=== PATIENT | female | born 1960 | race Caucasian/White ===

== ENCOUNTER 2017-12-16 05:48 | Day surgery (SDC) | payer MEDICAID ==
[2017-12-12 16:52] LABS: BASOPHILS % (AUTO) 0.7 % (0-1); EOSINOPHILS # (AUTO) 0.1 X10'3 (0-0.9); LYMPHOCYTES # (AUTO) 1.8 X10'3 (1.1-4.8); MEAN CORPUSCULAR HGB CONC 33.5 % (33.0-36.5); MEAN CORPUSCULAR VOLUME 95.5 FL (78-98); MEAN PLATELET VOLUME 7.9 FL (7.4-10.4); MONOCYTES # (AUTO) 0.3 X10'3 (0-0.9); MONOCYTES % (AUTO) 5.3 % (2-12); NEUTROPHILS # (AUTO) 4.1 X10'3 (1.8-7.7); PRE OP HEMATOCRIT 40.3 % (35.0-45.0); PRE OP HEMOGLOBIN 13.5 g/dL (12.0-16.0); PRE OP PLATELET COUNT 286 X10'3 (140-440); RED BLOOD COUNT 4.21 X10'6 (4.20-5.60)
[2017-12-12 16:59] LABS: PRE OP INR 1.1 INR; PRE OP PROTIME 11.4 SECONDS (9.0-12.0)
[2017-12-12 17:03] LABS: ALBUMIN 3.8 G/DL (3.4-5.0); ALBUMIN/GLOBULIN RATIO 1.1 (1.1-1.5); ALKALINE PHOSPHATASE 75 IU/L (46-116); BLOOD UREA NITROGEN 10 MG/DL (7-18); BUN/CREATININE RATIO 13.3 (6.6-38.0); CALCIUM 9.3 MG/DL (8.5-10.1); CHLORIDE 104 MMOL/L (99-107); CREATININE 0.75 MG/DL (0.40-0.90); PRE OP ALT 32 U/L (30-65); PRE OP ANION GAP 4 (8-16); PRE OP AST 23 U/L (10-37); PRE OP BILIRUB, TOTAL 0.4 MG/DL (0.0-1.0); PRE OP GLUCOSE 92 MG/DL (70-104); PRE OP POTASSIUM 4.1 MMOL/L (3.4-5.1); PRE OP SODIUM 141 MMOL/L (135-145); TOTAL CARBON DIOXIDE 32.7 MMOL/L (24-32); TOTAL PROTEIN 7.2 G/DL (6.4-8.2); eGFR 80 ML/MIN
[2017-12-16] VITALS (18 sets, daily range): BP systolic 123–155; BP diastolic 65–94
[~2017-12-16] VITALS: Ht 172.7 cm; Wt 102.7 kg
[~2017-12-16 05:48] MED LIST: AMIO200T10 PO; CALC-467; LISI-600 PO; LORA1TAB PO; MULT400C3; RIVA20TA PO; ceFOXitin 2 GM ADDvantage bag 100 ML IV ONE; famotidine 20mg tablet PO ONE
[2017-12-16] MEDS ORDERED: LIDOcaine 1% (10mg/ml) 2ml vial ONE (06:57)
[2017-12-16] MEDS ORDERED: clindamycin phosphate 40gm vag cream ONE (07:03)
[2017-12-16] MEDS ORDERED: ceFAZolin 1000mg inj ONE (07:03)
[2017-12-16] MEDS ORDERED: vasoPRESSIN 20 units/ml inj. ONE (07:04)
[2017-12-16] MEDS: ringers solution, lacted 1,000 ML IV SCH ×4 (07:06→16:45)
[2017-12-16] MEDS ORDERED: sevoflurane 250ml liquid IH ONE (08:16)
[2017-12-16] MEDS ORDERED: fentaNYL/PF 50MCG/1 ML 2ML syringe ONE (08:21)
[2017-12-16] MEDS ORDERED: midazolam 2 mg/2 ml injection ONE (08:21)
[2017-12-16] MEDS ORDERED: dexamethasone sod phosphate 4mg/ml inj. ONE (08:46)
[2017-12-16] MEDS ORDERED: ondansetron/PF 4mg/2ml inj ONE (08:46)
[2017-12-16] MEDS ORDERED: propofol inj 20 ML IV ONE (08:47)
[2017-12-16] MEDS ORDERED: fluoroscein sod 10% (100mg/ml) 5ml vial ONE (08:47)
[2017-12-16] MEDS ORDERED: LIDOcaine 2% (20mg/ml) 5ml vial ONE (08:47)
[2017-12-16] MEDS ORDERED: ringers solution, lacted 1,000 ML IV SCH (09:28)
[2017-12-16] MEDS ORDERED: proCHLORperazine 10 MG/2 ml inj IV PRN (09:30)
[2017-12-16] MEDS ORDERED: fentaNYL/PF 50MCG/1 ML 2ML syringe IV PRN ×2 (09:30)
[2017-12-16] MEDS ORDERED: ondansetron/PF 4mg/2ml inj IV PRN (09:30)
[2017-12-16] MEDS ORDERED: meperidine/PF 25mg/ml syringe IV ONE (09:30)
[2017-12-16] MEDS ORDERED: normal saline 500ml IV soln 500 ML IV PRN (09:40)
[2017-12-16] MEDS ORDERED: magnesium hydroxide 30ml (MOM) UD suspension PO PRN (09:40)
[2017-12-16] MEDS ORDERED: diphenhydrAMINE 50 mg/ml inj IV PRN (09:40)
[2017-12-16] MEDS ORDERED: HYDROcodone/acetaminophen 5mg/325mg tablet PO PRN ×2 (09:40)
[2017-12-16] MEDS ORDERED: naloxone 0.4 mg/ml inj IV PRN (09:40)
[2017-12-16] MEDS ORDERED: CADD PCA waste documentation MC PRN (09:40)
[2017-12-16] MEDS ORDERED: temazepam 15mg capsule PO PRN (09:40)
[2017-12-16] MEDS: HYDROmorphone/NS 1 mg/ml CADD 50 ML IV SCH ×6 (11:00→23:00)
[2017-12-16] MEDS: simethicone 80mg chew tab PO SCH ×2 (14:18→17:35)
[2017-12-16] MEDS: ketorolac trometh. 30mg/ml inj. IV PRN ×2 (14:58→22:16)
[2017-12-16] MEDS: ondansetron/PF 4mg/2ml inj IV PRN (19:10)
[2017-12-17] VITALS: BP 147/74
[2017-12-17] MEDS: HYDROmorphone/NS 1 mg/ml CADD 50 ML IV SCH ×4 (01:00→06:35)
[2017-12-17] MEDS: ondansetron/PF 4mg/2ml inj IV PRN (01:09)
[2017-12-17] MEDS: ringers solution, lacted 1,000 ML IV SCH ×2 (02:26→08:09)
[2017-12-17] MEDS: ketorolac trometh. 30mg/ml inj. IV PRN (04:21)
[2017-12-17 05:02] LABS: BASOPHILS % (AUTO) 0.2 % (0-1); EOSINOPHILS # (AUTO) 0.1 X10'3 (0-0.9); HEMATOCRIT 37.6 % (35.0-45.0); HEMOGLOBIN 12.6 g/dl (12.0-16.0); LYMPHOCYTES # (AUTO) 0.9 X10'3 (1.1-4.8); LYMPHOCYTES % (AUTO) 15.5 % (21-51); MEAN CORPUSCULAR HEMOGLOBIN 31.8 PG (27.0-31.0); MEAN CORPUSCULAR HGB CONC 33.4 % (33.0-36.5); MEAN CORPUSCULAR VOLUME 95.3 FL (78-98); MEAN PLATELET VOLUME 7.9 FL (7.4-10.4); MONOCYTES # (AUTO) 0.3 X10'3 (0-0.9); MONOCYTES % (AUTO) 4.6 % (2-12); NEUTROPHILS # (AUTO) 4.6 X10'3 (1.8-7.7); NEUTROPHILS % (AUTO) 78.7 % (42-75); PLATELET COUNT 263 X10'3 (140-440); RED BLOOD COUNT 3.95 X10'6 (4.20-5.60); RED CELL DISTRIBUTION WIDTH 13.6 % (11.5-14.5); WHITE BLOOD COUNT 5.8 X10'3 (4.5-11.0)
[2017-12-17 07:00] VITALS: BP 160/73
[2017-12-17] MEDS: simethicone 80mg chew tab PO SCH ×2 (08:06→13:28)
[2017-12-17 12:40] VITALS: BP 132/71
== END 2017-12-17 16:39 | disposition home or self-care (01) ==
LOC: PAS 05:48 → SUR 3N 09:37 → PAS 12-17 16:39
PROVIDERS: ATTEND Specialist
DX: D28.1 Benign neoplasm of vagina (principal); N81.10 Cystocele, unspecified; N39.3 Stress incontinence (female) (male); R23.4 Changes in skin texture; F41.8 Other specified anxiety disorders; M19.90 Unspecified osteoarthritis, unspecified site; G43.909 Migraine, unspecified, not intractable, without status migrainosus; I48.91 Unspecified atrial fibrillation; I10 Essential (primary) hypertension; E66.9 Obesity, unspecified
CPT/HCPCS: 36415; 57135; 57240; 57288; 80053; 85025; 85610; 85730; 86885; 86900; 86901; 87070; A4315; A4355; C1771; J0690; J0694; J1100; J1170; J1885; J2001; J2250; J2405; J2704; J3010; J3490; J7120; A6250; A7000; J7030

== ENCOUNTER 2019-07-13 14:22 | Day surgery (SDC) | payer MEDICAID ==
[~2019-07-13] VITALS: Ht 172.7 cm; Wt 113.6 kg
[~2019-07-13 14:22] MED LIST changes: -ceFOXitin 2 GM ADDvantage bag 100 ML IV ONE; -famotidine 20mg tablet PO ONE
[2019-07-13 14:25] VITALS: BP 116/70
[2019-07-13] MEDS ORDERED: fentaNYL/PF 50MCG/1 ML 2ML syringe ONE (14:55)
[2019-07-13] MEDS ORDERED: MIDAZolam 5mg/5ml vial ONE (14:56)
[2019-07-13] MEDS ORDERED: SOTA80TA46 (15:00)
[2019-07-13] MEDS ORDERED: FLUO15OI15 TOP (15:01)
[2019-07-13 15:22] VITALS: BP 139/85
[2019-07-13 15:32] VITALS: BP 144/82
[2019-07-13 15:42] VITALS: BP 130/70
[2019-07-13 15:52] VITALS: BP 111/79
== END 2019-07-13 15:55 | disposition home or self-care (01) ==
LOC: GI LAB 14:22
PROVIDERS: ATTEND Internal Medicine Gastroenterology
DX: K64.8 Other hemorrhoids (principal)
CPT/HCPCS: 45350; 99152; J2250; J3010; J7040; A4620

== ENCOUNTER 2019-08-17 10:26 | Day surgery (SDC) | payer MEDICAID ==
[~2019-08-17] VITALS: Ht 172.7 cm; Wt 113.6 kg
[~2019-08-17 10:26] MED LIST changes: -AMIO200T10 PO; +FLUO15OI15 TOP; -LORA1TAB PO; +SOTA80TA46
[2019-08-17 10:37] VITALS: BP 139/76
[2019-08-17] MEDS ORDERED: LIDOcaine Viscous 15ml cup ONE (10:46)
[2019-08-17] MEDS ORDERED: fentaNYL/PF 50MCG/1 ML 2ML syringe ONE (10:46)
[2019-08-17] MEDS ORDERED: MIDAZolam 5mg/5ml vial ONE (10:46)
[2019-08-17 11:14] VITALS: BP 109/64
[2019-08-17 11:24] VITALS: BP 105/61
[2019-08-17 11:34] VITALS: BP 118/67
== END 2019-08-17 11:53 | disposition home or self-care (01) ==
LOC: GI LAB 10:26
PROVIDERS: ATTEND Internal Medicine Gastroenterology
DX: K64.8 Other hemorrhoids (principal); Z79.899 Other long term (current) drug therapy
CPT/HCPCS: 45350; 99152; J2250; J3010; J7040; A4620

== ENCOUNTER 2023-01-14 07:05 | Day surgery (SDC) | payer MEDICAID ==
[2023-01-10 15:42] LABS: BASOPHILS # (AUTO) 0.1 X10'3 (0-0.2); BASOPHILS % (AUTO) 1.1 % (0-1); EOSINOPHILS # (AUTO) 0.1 X10'3 (0-0.9); EOSINOPHILS % (AUTO) 1.1 % (0-6); LYMPHOCYTES # (AUTO) 1.6 X10'3 (1.1-4.8); LYMPHOCYTES % (AUTO) 29.6 % (21-51); MEAN CORPUSCULAR HEMOGLOBIN 31.2 PG (27.0-31.0); MEAN CORPUSCULAR HGB CONC 33.7 g/dL (33.0-36.5); MEAN CORPUSCULAR VOLUME 92.8 FL (78-98); MEAN PLATELET VOLUME 7.7 FL (7.4-10.4); MONOCYTES # (AUTO) 0.3 X10'3 (0-0.9); MONOCYTES % (AUTO) 5.4 % (2-12); NEUTROPHILS # (AUTO) 3.4 X10'3 (1.8-7.7); NEUTROPHILS % (AUTO) 62.8 % (42-75); PRE OP HEMATOCRIT 39.4 % (35.0-45.0); PRE OP HEMOGLOBIN 13.3 g/dL (12.0-16.0); PRE OP PLATELET COUNT 269 X10'3 (140-440); RED BLOOD COUNT 4.25 X10'6 (4.20-5.60); RED CELL DISTRIBUTION WIDTH 14.3 % (11.5-14.5)
[2023-01-10 15:55] LABS: ALBUMIN 3.7 G/DL (3.4-5.0); ALBUMIN/GLOBULIN RATIO 1.1 (1.1-1.5); ALKALINE PHOSPHATASE 86 IU/L (46-116); BLOOD UREA NITROGEN 10 MG/DL (7-18); BUN/CREATININE RATIO 14.1 (6.6-38.0); CALCIUM 9.3 MG/DL (8.5-10.1); CHLORIDE 103 MMOL/L (99-107); CREATININE 0.71 MG/DL (0.40-0.90); PRE OP ALT 17 U/L (30-65); PRE OP ANION GAP 5 (8-16); PRE OP AST 19 U/L (10-37); PRE OP BILIRUB, TOTAL 0.4 MG/DL (0.0-1.0); PRE OP GLUCOSE 106 MG/DL (70-104); PRE OP POTASSIUM 3.4 MMOL/L (3.4-5.1); PRE OP SODIUM 141 MMOL/L (135-145); TOTAL CARBON DIOXIDE 32.6 MMOL/L (24-32); TOTAL PROTEIN 7.2 G/DL (6.4-8.2); eGFR 83 ML/MIN
[2023-01-14] VITALS (7 sets, daily range): BP systolic 119–140; BP diastolic 54–102
[~2023-01-14] VITALS: Ht 172.7 cm; Wt 120.8 kg
[~2023-01-14 07:05] MED LIST changes: +BUPIVAcaine/PF 5 mg/ml 10ml ONE; -CALC-467; +DOCUMENT DATE & TIME OF BETA-BLOCKER PO ONE; -FLUO15OI15 TOP; +HYDR25TA4 PO; -LISI-600 PO; +LISI20TA28 PO; +LORA-268; +MELA2.5T PO; -MULT400C3; +PANT40TA54 PO; +PSYL0.4C2 PO; +ceFAZolin inj. 2,000 MG in dextrose 5%-water 100 ML IV ONE; +famotidine 20mg tablet PO ONE; +ringers solution, lacted 1,000 ML IV SCH
[2023-01-14] MEDS ORDERED: LIDOcaine 0.5% (5mg/ml) 50ml vial ONE (09:50)
[2023-01-14] MEDS ORDERED: ringers solution, lacted 1,000 ML IV SCH (09:55)
[2023-01-14] MEDS ORDERED: hydrALAZINE 20mg/ml inj. IV PRN (09:55)
[2023-01-14] MEDS ORDERED: ondansetron/PF 4mg/2ml inj IV PRN (09:55)
[2023-01-14] MEDS ORDERED: meperidine/PF 25mg/ml syringe IV PRN ×3 (09:55)
[2023-01-14] MEDS ORDERED: morphine 2 MG/ML inj. syringe IV PRN (09:55)
[2023-01-14] MEDS ORDERED: labetalol 20mg/4ml (5mg/ml) syringe IV PRN (09:55)
[2023-01-14] MEDS ORDERED: proCHLORperazine 10 MG/2 ml inj IV PRN (09:55)
[2023-01-14] MEDS ORDERED: morphine 4 MG/ML inj SYRINge IV PRN (09:55)
[2023-01-14] MEDS ORDERED: acetaminophen 1,000mg/100ml IV 100 ML IV PRN (09:55)
[2023-01-14] MEDS ORDERED: fentaNYL/PF 50MCG/1 ML 2ML syringe ONE (09:57)
[2023-01-14] MEDS ORDERED: midazolam 1 mg/ML 2ml injection ONE (09:58)
[2023-01-14] MEDS ORDERED: BUPIVAcaine/PF 5 mg/ml 10ml IJ ONE (10:14)
[2023-01-14] MEDS ORDERED: propofol inj 20 ML IV ONE (10:28)
--- NOTE | 2023-01-14 10:34 | NUR ---
Received from OR via , accompanied by Anesthesiologist PURNIMA AND OR NURSE, ILYA and report given by Anesthesiolgist. PT IS AWAKE AND ALERT AND REPORTS TINGLING TO AFFECTED WRIST BUT NOT PAIN OR DISCOMFORT. PT HAS A HISTORY OF SINUS BRADYCARDIA AND A-FIB AND SEES A CARDOILOGIST REGULARLY. HAD A RECENT ABLASION AND TODAY PT IS NYA WILKS WITH REGULAR RYTHM. OTHER VSS. Addendum: 01/14/23 at 1052 by Destiney Courtney RN Amended: Links added.
--- NOTE | 2023-01-14 11:44 | NUR ---
ALL DISCHARGE CRITERIA HAS BEEN MET. VSS, PAIN AND DISCOMFORT DENIED BY PT, VOIDING AND ABLE TO SAFELY AMBULATE AND TRANSFER SELF. IV TAKEN OUT WITHOUT ANY COMPLICATIONS. ALL DISCHARGE INSTRUCTIONS COVERED WITH PATIENT AND ALL QUESTIONS ANSWERED. PATIENT TAKEN OUT VIA WHEELCHAIR TO PERSONAL VEHICLE WHERE FAMILY/FRIEND DROVE PATIENT HOME. Addendum: 01/14/23 at 1146 by Destiney Courtney RN Amended: Links added.
== END 2023-01-14 11:44 | disposition home or self-care (01) ==
LOC: PAS 07:05
PROVIDERS: ATTEND Orthopaedic Surgery Hand Surgery
DX: M65.341 Trigger finger, right ring finger (principal); M67.441 Ganglion, right hand; F12.90 Cannabis use, unspecified, uncomplicated; G47.33 Obstructive sleep apnea (adult) (pediatric); I10 Essential (primary) hypertension; F41.9 Anxiety disorder, unspecified; I48.91 Unspecified atrial fibrillation; E66.9 Obesity, unspecified; Z68.41 Body mass index [BMI] 40.0-44.9, adult; Z88.8 Allergy status to other drugs, medicaments and biological substances; Z90.710 Acquired absence of both cervix and uterus; Z98.890 Other specified postprocedural states; Z96.653 Presence of artificial knee joint, bilateral; Z79.899 Other long term (current) drug therapy
CPT/HCPCS: 26055; 26160; 36415; 80053; 82948; 85025; 93005; J0690; J2250; J2704; J3010; J3490; J7030; J7060; J7120; Z7506; Z7512; A4215; A4618; A7000; J0131; J2175